=== PATIENT | male | born 1990 | race Caucasian/White ===

== ENCOUNTER 2016-12-22 07:48 | Observation (INO) ==
--- NOTE | 2016-12-22 08:10 | Emergency Department Note ---
Disposition Clinical Impression: Hematuria, Hemorrhage of kidney Disposition: Admitted As Inpatient Condition: Fair Referrals: Live Vallejo MD [Family Provider] - Forms: ED Satisfaction Letter, Work/School Release Time of Disposition: 10:40 Abdominal Pain HPI - General Chief Complaint: ED Abdominal Pain Stated Complaint: kidney stones Time Seen by Provider: 12/22/16 07:56 Source: patient, family Mode of arrival: ambulatory Limitations: no limitations Nursing Notes Reviewed: Yes Vital Signs Reviewed: Yes - History of Present Illness HPI Narrative: Patient is a healthy 26-year-old male with a past medical history of GERD that presents to the ED with chief complaint kidney stones. Patient states that he was seen at [facility] on Saturday and diagnosed with a kidney stone. Patient states they performed an ultrasound of his testicles and took blood for lab values. According to patient and mother [facility] never really explained anything to them or told them where the kidney stone was. Patient had no imaging preformed besides the US of his testicles. Patient returns to our ED today because of increased pain, nausea, vomiting and subjective fever. He is complaining of right and left flank pain, generalized abdominal pain, hematuria and dysuria. Denies any testicular swelling or testicular discharge. Pt denies any hx of kidney stones. Pt Subjective Complaint: abdominal pain, flank pain Onset (ago): day(s) Consistency: constant, Worsening Location: diffuse Pain Severity: moderate Pain Scale: 8 Quality: cramping, sharp, dull Radiation: none Migration to: no migration Improves with: nothing Worsens with: nothing Associated symptoms: Reports: denies other symptoms, nausea, vomiting, fever ( Subjective), hematuria. Denies: diarrhea, chills, constipation, dysuria, hematemesis, hematochezia, melena, anorexia, syncope Treatments prior to arrival: none - Related Data Allergies Allergy/AdvReac Type Severity Reaction Status Date / Time No Known Allergies Allergy Verified 12/22/16 07:52 All systems ED: reviewed and negative except as stated. Review of Systems: As Per HPI Constitutional: Reports: fever, chills. Denies: weakness Eyes: Denies: eye discharge Cardiovascular: Denies: chest pain, palpitations, dyspnea on exertion Respiratory: Denies: cough, dyspnea, wheezes, hemoptysis Gastrointestinal: Reports: abdominal pain, nausea, vomiting. Denies: diarrhea, constipation, hematemesis, melena, hematochezia Genitourinary: Reports: dysuria, hematuria. Denies: urgency, frequency, discharge, testicular pain, testicular mass, genital lesions Musculoskeletal: Reports: back pain. Denies: neck pain Integumentary: Denies: rash Neurological: Denies: headache, weakness, numbness, paresthesias Abdominal Pain PMH - Past Medical History Medical history: Reports: no medical history Male Surgical History: Reports: no surgical history Psychiatric history: Reports: no psych history - Social History Smoking status: Never smoker Alcohol use: Reports: none Drug use: Reports: none Physical Exam - General Limitations: no limitations General appearance: alert, in no apparent distress - Head Head exam: atraumatic, normocephalic, normal inspection - Eye Eye exam: Present: normal appearance, PERRL, EOMI - ENT ENT exam: mucous membranes moist - Neck Neck exam: Present: normal inspection, full ROM, trachea midline. Absent: tenderness - Chest Chest inspection: Present: normal inspection, symmetric chest wall rise - Respiratory Respiratory exam: Present: normal lung sounds bilaterally. Absent: respiratory distress - Cardiovascular Cardiovascular exam: Present: regular rate, normal rhythm, normal heart sounds - Abdominal Exam Abdominal exam: Present: soft, tenderness (Diffuse tenderness to palpation), normal bowel sounds. Absent: distention, guarding, rebound, rigidity, trauma, incision, mass, pulsatile mass, hernia, scar - Extremities Exam Extremities exam: Present: normal inspection. Absent: pedal edema - Expanded Lower Extremity Exam Gait: observed and normal - Back Exam Back exam: Present: normal inspection, full ROM, CVA tenderness (R), CVA tenderness (L), muscle spasm (Lumbar), paraspinal tenderness (Lumbar). Absent: vertebral tenderness, rashes - Neurological Exam Neurological exam: Present: alert, oriented X3, CN II-XII intact, normal gait - Psychiatric Psychiatric exam: Present: normal affect, normal mood - Skin Skin exam: Present: warm, dry, intact, normal color. Absent: rash, cyanosis, diaphoresis Course Course Narrative: Patient is a healthy 26-year-old male with a past medical history of GERD that presents to the ED with chief complaint kidney stones. Patient states that he was seen at [facility] on Saturday and diagnosed with a kidney stone. Patient states they performed an ultrasound of his testicles and took blood for lab values. According to patient and mother [facility] never really explained anything to them or told them where the kidney stone was. Patient had no imaging preformed besides the US of his testicles. Patient returns to our ED today because of increased pain, nausea, vomiting and subjective fever. He is complaining of right and left flank pain, generalized abdominal pain, hematuria and dysuria. Denies any testicular swelling or testicular discharge. Pt denies any hx of kidney stones. Patient was given Toradol for pain control at [facility] and pt reports he has been taking both ibuprofen and Tylenol at home for pain control. Patient is a nontoxic appearing 26-year-old male. Vital stable. Afebrile. Alert and oriented 3. Appears in no acute distress. Heart RRR. Lungs CTAB. Abdomen normal inspection, soft, diffuse tenderness with palpation. No guarding or rebound noted. Normal bowel sounds. Back normal inspection, lumbar paraspinal muscle tenderness with palpation. Left and right CVA tenderness with Palpation. No vertebral point tenderness. Extremities within normal limits. Neuro no focal neurological deficits noted on exam. Reviewed previous records from [facility] provided by patient Plan to obtain labs, UA and CT of abdomen and pelvis. Pain and nausea medication given. Will reevaluate CT: 1. Hyperdensity, consistent with hemorrhage, involving the mid and lower pole calices of the right kidney and extending to the right renal pelvis. No evidence of hydronephrosis, and no defined renal stones are identified 2. Mild mesenteric panniculitis Labs unremarkable. Hemoglobin within normal limits. WBC within normal limits. UA large blood, will culture Discussed case with Dr. Fontaine via telephone. Dr. Fontaine reviewed CT. He states it patient does have multiple blood clots in his renal pelvis which could be causing him this discomfort. Dr. Fontaine states that if patient's pain is controlled and he is comfortable with sending him home and having him follow up closely with his office on Saturday morning. States that patient will need a repeat CT scan with contrast but he would not recommend getting a repeat CT with contrast until some of the clots resolved because it will cause too much interference. Dr. Fontaine states it patient is unable to go home secondary to pain can admitted to his services for pain control. States that he will most likely place a stent and to convey this with pt. Discussed extensively with patient and mother conversation I had with Dr. Fontaine. Dilaudid and Zofran given. We will reevaluate Discussed case with Dr. Molina. He had [id number] time with patient and agrees with my assessment and plan. - Reevaluation(s) Reevaluation #1: On reevaluation after morphine, Dilaudid and Zofran patient states that pain has slightly improved but is not controlled to go home. Patient is requesting that we admit him to the hospital service for pain control. Will call on-call urology. Discussed case with on-call urology Dr. Fontaine. He will accept patient to his services. No other requested this time. Patient stable to be transferred to the floor Time: 10:43 Vital Signs Temperature 97.5 F L 12/22/16 07:49 Pulse Rate 78 12/22/16 07:49 Respiratory Rate 16 12/22/16 07:49 Blood Pressure 127/88 12/22/16 07:49 O2 Sat by Pulse Oximetry 99 12/22/16 07:49 Temperature 97.5 F L 12/22/16 07:49 Pulse Rate 75 12/22/16 09:36 Respiratory Rate 14 12/22/16 09:36 Blood Pressure 125/75 12/22/16 09:36 O2 Sat by Pulse Oximetry 96 12/22/16 09:36 Oxygen Delivery Oxygen Delivery Room Air Abdominal Pain - Medical Records Medical records reviewed: Yes I reviewed the patient's medical records. - Lab Data Lab results reviewed: Yes I reviewed the patient's lab results. Result diagrams: 12/22/16 08:12 12/22/16 08:12 Lab Results 12/22/16 12/22/16 12/22/16 Range/Units 08:00 08:12 08:12 WBC 8.0 (4.3-11.1) K/mcL RBC 4.87 (4.19-5.50) M/mcL Hgb 14.5 (12.9-16.9) g/dL Hct 42.2 (37.5-50.1) % MCV 86.7 (83.0-100.0) fL MCH 29.8 (28.0-33.3) pg MCHC 34.4 (31.6-35.5) g/dL RDW 12.4 (11.5-14.5) % Plt Count 227 (140-400) K/mcL MPV 9.1 L (9.4-12.4) fL Immature Gran % 0.4 (0-4) % Seg Neutrophils % 58.4 % Lymphocytes % 29.5 % Monocytes % 8.6 % Eosinophils % 2.7 % Basophils % 0.4 % Neutrophils # 4.7 (1.6-8.9) K/mcL Lymphocytes # 2.4 (0.6-4.6) K/mcL Monocytes # 0.7 (0.0-1.3) K/mcL Eosinophils # 0.2 (0.0-0.6) K/mcL Basophils # 0.0 (0.0-0.2) K/mcL Immature Plt Fraction 2.9 (1.1-6.1) % Sodium 142 (136-145) mEq/L Potassium 4.5 (3.5-4.5) mEq/L Chloride 107 (98-109) mEq/L Carbon Dioxide 28 (19-29) mEq/L BUN 12 (8-26) mg/dL Creatinine 0.98 (0.72-1.25) mg/dL Est GFR ( Amer) > 60 (> 60) Est GFR (Non-Af Amer) > 60 (> 60) BUN/Creatinine Ratio 12 (6-26) Glucose 71 (70-99) mg/dL Calculated Osmolality 292 (280-300) Uric Acid 6.5 (3.5-7.2) mg/dL Calcium 9.4 (8.6-10.8) mg/dL Total Bilirubin 0.9 (0.2-1.2) mg/dL AST 26 (5-34) Units/L ALT 27 (0-55) Units/L Alkaline Phosphatase 76 (38-126) Units/L Serum Total Protein 7.4 (6.0-8.3) g/dL Albumin 4.0 (3.5-5.0) g/dL Globulin 3.4 (2.4-3.5) g/dL Albumin/Globulin Ratio 1.2 (1.1-2.2) Lipase 14 (8-78) Units/L Ur Specimen Adequacy See below A Urine Color Red A (Yellow) Urine Clarity Cloudy A (Clear) Urine pH 6.5 (5.0-8.0) pH Units Ur Specific [place] 1.028 H (1.010-1.025) Urine Protein >=300 H (Neg-Trace) mg/dL Urine Glucose (UA) 250 H (Normal) mg/dL Urine Ketones Negative (Negative) mg/dL Urine Blood Large H (Negative) Urine Nitrite Negative (Negative) Urine Bilirubin Negative (Negative) Urine Urobilinogen Normal (Normal) mg/dL Ur Leukocyte Esterase Trace H (Negative) Ur Culture Indicated? YES A (NO) - Radiology Data Radiology results reviewed: Yes I reviewed the patient's radiology results. Attestation Statement - Attestation Attestation: Patient was seen in cooperation with physician assistant grocery store manager. I reviewed the history physical assessment and plan and agree with findings. I also had personal [id number] time with and help with decision-making process. Patient is a 26-year-old male who presents to the emergency Department chief complaint of testicular and abdominal pain. Patient was seen at another facility and presents with an ultrasound report of the testicles that was negative for abnormalities. He states that he was diagnosed with kidney stones, but was not given a CT scan or other imaging tests yesterday. He comes in today because the pain is worse especially in the right side in the right flank he also has increased blood in his urine. He is also states that he passed some blood clots. Additionally's had nausea and vomiting. On exam vital signs are stable. ENT is unremarkable. Heart and lungs normal. Abdomen is soft and cannot really elicit tenderness with palpation. Genital exam is normal. Extremities are unremarkable. Neurologically the patient's intact. ED course urine is very red. Is positive for blood. Other labs are unremarkable. We will get a CT scan of the abdomen and pelvis to rule out renal stones or other problems. CT scan demonstrated renal infarct. Case was discussed with urology. They stated if we cannot control pain it would admit to the service for possible stenting. Pain was not well controlled while in the ER. Urology was contacted again and hospitalization was arranged. Agree with physician assistant grocery store manager assessment and plan.
[2016-12-22] MEDS ORDERED: *HR* Morphine 2 MG/ML SYRINGE IVP ONE (08:17)
[2016-12-22] MEDS ORDERED: Ondansetron 4 MG/2 ML VIAL IVP ONE (08:17)
[2016-12-22 08:21] LABS: Basophils % 0.4 %; Eosinophils # 0.2 K/mcL (0.0-0.6); Eosinophils % 2.7 %; Hematocrit 42.2 % (37.5-50.1); Hemoglobin 14.5 g/dL (12.9-16.9); Immature Granulocytes % 0.4 % (0-4); Immature Platelets 2.9 % (1.1-6.1); Lymphocytes # 2.4 K/mcL (0.6-4.6); Lymphocytes % 29.5 %; Mean Corpuscular HGB Conc 34.4 g/dL (31.6-35.5); Mean Corpuscular Hemoglobin 29.8 pg (28.0-33.3); Mean Corpuscular Volume 86.7 fL (83.0-100.0); Mean Platelet Volume 9.1 fL (9.4-12.4); Monocytes # 0.7 K/mcL (0.0-1.3); Monocytes % 8.6 %; Neutrophils # 4.7 K/mcL (1.6-8.9); Platelet Count 227 K/mcL (140-400); Red Blood Count 4.87 M/mcL (4.19-5.50); Red Cell Distribution Width 12.4 % (11.5-14.5); Segmented Neutrophils % 58.4 %
[2016-12-22 08:22] LABS: Bilirubin,Urine Negative (Negative); Blood,Urine Large (Negative); Clarity,Urine Cloudy (Clear); Color,Urine Red (Yellow); Glucose,Urine (UA) 250 mg/dL (Normal); Ketones,Urine Negative (Negative); PH,Urine 6.5 pH Units (5.0-8.0); Specific Gravity,Urine 1.028 (1.010-1.025)
[2016-12-22 08:23] LABS: Leukocyte Esterase,Urine Trace (Negative); Nitrite,Urine Negative (Negative); Protein,Urine >=300 mg/dL (Neg-Trace); Urobilinogen,Urine Normal (Normal)
[2016-12-22 08:41] LABS: Alanine Aminotransferase 27 Units/L (0-55); Albumin/Globulin Ratio 1.2 (1.1-2.2); Alkaline Phosphatase 76 Units/L (38-126); Aspartate Amino Transferase 26 Units/L (5-34); BUN/Creatinine Ratio 12 (6-26); Bilirubin,Total 0.9 mg/dL (0.2-1.2); Blood Urea Nitrogen 12 mg/dL (8-26); Calcium 9.4 mg/dL (8.6-10.8); Carbon Dioxide 28 mEq/L (19-29); Chloride 107 mEq/L (98-109); Globulin 3.4 g/dL (2.4-3.5); Glucose 71 mg/dL (70-99); Lipase 14 Units/L (8-78); Osmolality,Calculated 292 (280-300); Potassium 4.5 mEq/L (3.5-4.5); Sodium 142 mEq/L (136-145); Total Protein 7.4 g/dL (6.0-8.3); Uric Acid 6.5 mg/dL (3.5-7.2); eGFR For African Americans > 60 (> 60); eGFR For Non-African Americans > 60 (> 60)
[2016-12-22] MEDS ORDERED: *HR* HYDROmorphone (PF) 1 MG/ML SYRINGE IVP ONE (09:28)
[2016-12-22] MEDS ORDERED: 0.9 % Sodium Chloride 1,000 ML IVC ONE (10:41)
[2016-12-22] MEDS ORDERED: Naloxone 0.4 MG/ML INJ IVP PRN (11:09)
[2016-12-22] MEDS ORDERED: *HR* HYDROmorphone (PF) 1 MG/ML SYRINGE IVP PRN (11:09)
[2016-12-22] MEDS ORDERED: *HR* Morphine 2 MG/ML SYRINGE IVP PRN (11:09)
[2016-12-22] MEDS ORDERED: Ondansetron 4 MG/2 ML VIAL IVP PRN (11:12)
[2016-12-22] MEDS: *HR* HYDROcodone/Acet 5/325 mg TABLET PO SCH ×3 (12:21→19:50)
[2016-12-22] MEDS: 0.9 % Sodium Chloride 1,000 ML IVC SCH ×2 (23:30→23:41)
[2016-12-23] MEDS: *HR* HYDROcodone/Acet 5/325 mg TABLET PO SCH ×3 (00:16→09:56)
[2016-12-23] MEDS: 0.9 % Sodium Chloride 1,000 ML IVC SCH ×2 (00:22→09:31)
[2016-12-23 06:05] LABS: Basophils % 0.2 %; Eosinophils # 0.2 K/mcL (0.0-0.6); Eosinophils % 2.8 %; Hematocrit 39.3 % (37.5-50.1); Hemoglobin 13.3 g/dL (12.9-16.9); Immature Granulocytes % 0.2 % (0-4); Lymphocytes # 3.1 K/mcL (0.6-4.6); Lymphocytes % 37.9 %; Mean Corpuscular HGB Conc 33.8 g/dL (31.6-35.5); Mean Corpuscular Hemoglobin 29.6 pg (28.0-33.3); Mean Corpuscular Volume 87.3 fL (83.0-100.0); Mean Platelet Volume 9.4 fL (9.4-12.4); Monocytes # 0.6 K/mcL (0.0-1.3); Neutrophils # 4.3 K/mcL (1.6-8.9); Platelet Count 194 K/mcL (140-400); Red Cell Distribution Width 12.3 % (11.5-14.5); Segmented Neutrophils % 51.9 %
[2016-12-23 06:10] LABS: INR 1.1; Prothrombin Time 11.3 Seconds (9.4-12.1)
[2016-12-23 06:19] LABS: BUN/Creatinine Ratio 11 (6-26); Blood Urea Nitrogen 10 mg/dL (8-26); Carbon Dioxide 29 mEq/L (19-29); Chloride 107 mEq/L (98-109); Glucose 87 mg/dL (70-99); Osmolality,Calculated 292 (280-300); Potassium 4.1 mEq/L (3.5-4.5); Sodium 142 mEq/L (136-145); eGFR For African Americans > 60 (> 60); eGFR For Non-African Americans > 60 (> 60)
--- NOTE | 2016-12-23 08:03 | Urology History & Physical ---
Date of Encounter: 12/23/16 Time of Encounter: 08:00 Assessment and Plan (1) Hemorrhage of kidney Current Visit: Yes Status: Acute I reviewed the noncontrast CT scan and am unable to determine an etiology for the bleeding. There are some blood clots within the collecting system but no obvious renal abnormalities. At the time of this dictation the hematuria is clearing with IV hydration. Plan is to not proceed with surgical intervention which would be a ureteral stent and discharged patient home. He will require future contrast imaging History of Present Illness Chief complaint: Flank pain and hematuria HPI: Mr. Quach is a 26 year old male with no significant medical history presented to an outside facility with gross hematuria flank pain. No imaging was performed. He was diagnosed with possible kidney stone. Pain and hematuria worsened. Presents to [facility] emergency room. CT scan was done which showed bleeding from the right kidney. No known etiology. He was admitted because of pain control. No trauma. No excessive NSAID use. No history of gross hematuria. Past Med Surg Social Fam HX - Past Medical History Medical history: no medical history Psychiatric history: no psych history - Social History Smoking Status: Never smoker Smokeless Tobacco Status: No Alcohol use: none Drug use: none - Family History Grandfather Hx Family Endocrine Disorder: Yes (diabetes) Medications and Allergies Cetirizine HCl [24Hour Allergy] 10 mg PO DAILY 12/22/16 [History] Lansoprazole [Prevacid] 30 mg PO DAILY 12/22/16 [History] raNITIdine HCl [Ranitidine HCl] 300 mg PO DAILY 12/22/16 [History] 3 Allergy/AdvReac Type Severity Reaction Status Date / Time No Known Allergies Allergy Verified 12/22/16 07:52 Review of Systems - Constitutional no chills, no fever(s) - EENT Nose, mouth and throat: no dizziness - Respiratory no cough - Gastrointestinal abdominal pain, nausea - Genitourinary flank pain, hematuria - Musculoskeletal back pain - Integumentary no erythema - Neurological no confusion - Psychiatric no anxiety - Hematologic/Lymphatic easy bleeding - Allergic/Immunologic no throat swelling Exam Initial Vital Signs Temp Pulse Resp BP Pulse Ox 97.5 F L 78 16 127/88 99 12/22/16 07:49 12/22/16 07:49 12/22/16 07:49 12/22/16 07:49 12/22/16 07:49 - General physical appearance Present: well developed, no distress - Eyes Present: PERRL - ENT Present: normal nares - Neck Present: no masses - Respiratory Present: normal respiratory effort - Abdomen Abdomen: Present: soft - Integumentary Present: no rash - Neurologic Present: normal coordination. Absent: disoriented, confused - Additional Findings no CVA tenderness. Urology Results - Labs 12/23/16 05:34 12/23/16 05:34 Abnormal lab results Ur Specimen Adequacy See below A 12/22/16 08:00 Urine Color Red (Yellow) A 12/22/16 08:00 Urine Clarity Cloudy (Clear) A 12/22/16 08:00 Ur Specific [place] 1.028 (1.010-1.025) H 12/22/16 08:00 Urine Protein >=300 mg/dL (Neg-Trace) H 12/22/16 08:00 Urine Glucose (UA) 250 mg/dL (Normal) H 12/22/16 08:00 Urine Blood Large (Negative) H 12/22/16 08:00 Ur Leukocyte Esterase Trace (Negative) H 12/22/16 08:00 Ur Culture Indicated? YES (NO) A 12/22/16 08:00 Diabetes panel 12/23/16 Range/Units 05:34 Sodium 142 (136-145) mEq/L Potassium 4.1 (3.5-4.5) mEq/L Chloride 107 (98-109) mEq/L Carbon Dioxide 29 (19-29) mEq/L BUN 10 (8-26) mg/dL Creatinine 0.90 (0.72-1.25) mg/dL Glucose 87 (70-99) mg/dL Calcium 9.0 (8.6-10.8) mg/dL Calcium panel 12/23/16 Range/Units 05:34 Calcium 9.0 (8.6-10.8) mg/dL Pituitary panel 12/23/16 Range/Units 05:34 Sodium 142 (136-145) mEq/L Potassium 4.1 (3.5-4.5) mEq/L Chloride 107 (98-109) mEq/L Carbon Dioxide 29 (19-29) mEq/L BUN 10 (8-26) mg/dL Creatinine 0.90 (0.72-1.25) mg/dL Glucose 87 (70-99) mg/dL Calcium 9.0 (8.6-10.8) mg/dL Adrenal panel 12/23/16 Range/Units 05:34 Sodium 142 (136-145) mEq/L Potassium 4.1 (3.5-4.5) mEq/L Chloride 107 (98-109) mEq/L Carbon Dioxide 29 (19-29) mEq/L BUN 10 (8-26) mg/dL Creatinine 0.90 (0.72-1.25) mg/dL Glucose 87 (70-99) mg/dL Calcium 9.0 (8.6-10.8) mg/dL All other labs normal.
[2016-12-23 08:06] VITALS: BP 121/74
--- NOTE | 2016-12-23 08:12 | Discharge Summary ---
Date of Encounter: 12/23/16 Time of Encounter: 08:10 - Discharge Diagnosis (1) Hemorrhage of kidney Priority: Primary Status: Acute - Discharge Medications Prescriptions: HYDROcodone/Acet 5/325 mg [[place] 5-325 mg] 1 tab PO Q4HR PRN #20 tablet PRN Reason: Pain Cefdinir [Omnicef] 300 mg PO BID #14 capsule Home Medications: Cetirizine HCl [24Hour Allergy] 10 mg PO DAILY 12/22/16 [History] Lansoprazole [Prevacid] 30 mg PO DAILY 12/22/16 [History] raNITIdine HCl [Ranitidine HCl] 300 mg PO DAILY 12/22/16 [History] Cefdinir [Omnicef] 300 mg PO BID #14 capsule 12/23/16 [Rx] HYDROcodone/Acet 5/325 mg [[place] 5-325 mg] 1 tab PO Q4HR PRN #20 tablet [Rx] Allergies/Adverse Reactions: 3 Allergy/AdvReac Type Severity Reaction Status Date / Time No Known Allergies Allergy Verified 12/22/16 07:52 Labs on day of discharge: Labs from last 24 hours 12/23/16 12/23/16 12/23/16 05:34 05:34 05:34 WBC 8.3 RBC 4.50 Hgb 13.3 Hct 39.3 MCV 87.3 MCH 29.6 MCHC 33.8 RDW 12.3 Plt Count 194 MPV 9.4 Immature Gran % 0.2 Seg Neutrophils % 51.9 Lymphocytes % 37.9 Monocytes % 7.0 Eosinophils % 2.8 Basophils % 0.2 Neutrophils # 4.3 Lymphocytes # 3.1 Monocytes # 0.6 Eosinophils # 0.2 Basophils # 0.0 PT 11.3 INR 1.1 Sodium 142 Potassium 4.1 Chloride 107 Carbon Dioxide 29 BUN 10 Creatinine 0.90 Est GFR ( Amer) > 60 Est GFR (Non-Af Amer) > 60 BUN/Creatinine Ratio 11 Glucose 87 Calculated Osmolality 292 Calcium 9.0 Date of admission: 12/22/16 10:56 Primary care physician: Sherrie Cruz MD Discharging clinician: Solomon Fontaine Anticipated date of discharge: 12/23/16 - Patient Status Disposition: Home, Self-Care Condition: Good Functional capacity at discharge: independent ambulation Overall status at discharge: patient is progressing back to baseline - Discharge Instructions Follow Up With: Sherrie Cruz MD [Primary Care Provider] - Live Vallejo MD [Family Provider] - Solomon Fontaine MD [Partnered Physician] - (My office will call to schedule CT urogram) Additional Instructions: Absolutely no NSAID use Avoid heavy lifting, heavy activity and straining Stay well hydrated with water - Diet and Activity Diet: advance to your usual diet - Hospital Course Hospital course: Mr. Quach is a 26 year old male admitted with dark gross hematuria, clots, flank pain. Appears to be spontaneous bleed from right kidney. Overnight with aggressive IV hydration and antibiotics his urine has turned into a transparent light hematuria. Pain is now down to a "3" - Time Spent with Patient Total time spent providing and/or coordinating discharge services: Exam Initial Vital Signs Temp Pulse Resp BP Pulse Ox 97.5 F L 78 16 127/88 99 12/22/16 07:49 12/22/16 07:49 12/22/16 07:49 12/22/16 07:49 12/22/16 07:49 - General physical appearance Present: well developed, no distress - Additional Findings Urine is transparent pinkish red
[2016-12-23] MEDS ORDERED: FLUARIX QUAD 2017-18 36MOS UP/PF 0.5 ML SYRINGE IM ONE (08:43)
== END 2016-12-23 10:00 | disposition home or self-care (01) ==
LOC: EMEROO 07:48 → 2ANU 07:48
PROVIDERS: ADMIT Urology; ATTEND Urology